=== PATIENT | female | born 1995 | race Caucasian/White ===

== ENCOUNTER 2023-01-25 14:29 | Outpatient (CLI) | payer BC ==
[2023-01-25 20:37] LABS: % IRON SATURATION 18 % (20-50); IRON 80 ug/dL (28-170); TOTAL IRON BINDING CAPACITY 444 ug/dL (250-450); TRANSFERRIN 317 mg/dL (192-382)
== END 2023-01-25 14:30 | disposition home or self-care (01) ==
LOC: LAB.S 14:29
PROVIDERS: ATTEND Family Medicine
DX: E61.1 Iron deficiency (principal)
CPT/HCPCS: 36415; 82728; 83540; 84466

== ENCOUNTER 2024-07-20 08:00 | Outpatient (CLI) | payer BC ==
[2024-07-21 00:44] LABS: BACTERIAL VAGINOSIS DNA NEGATIVE (NEGATIVE); CANDIDA GLABRATA DNA NEGATIVE (NEGATIVE); CANDIDA GROUP DNA NEGATIVE (NEGATIVE); CANDIDA KRUSEI DNA NEGATIVE (NEGATIVE); TRICHOMONAS VAGINALIS DNA NEGATIVE (NEGATIVE)
[2024-07-21 01:41] LABS: CHLAMYDIA TRACHOMATIS DNA NEGATIVE (NEGATIVE); NEISSERIA GONORRHOEAE DNA NEGATIVE (NEGATIVE)
== END 2024-07-20 23:59 | disposition home or self-care (01) ==
LOC: LAB 08:00
PROVIDERS: ATTEND Registered Nurse
DX: N94.6 Dysmenorrhea, unspecified (principal); N89.8 Other specified noninflammatory disorders of vagina; Z20.2 Contact with and (suspected) exposure to infections with a predominantly sexual mode of transmission
CPT/HCPCS: 81514; 87491; 87591; 87661

== ENCOUNTER 2024-07-21 12:50 | Outpatient (CLI) | payer BC ==
[2024-07-21 20:32] LABS: BILIRUBIN,URINE NEGATIVE (NEGATIVE); CLARITY,URINE CLEAR (CLEAR); GLUCOSE, URINE (UA) NEGATIVE (NEGATIVE); KETONES,URINE (UA) NEGATIVE (NEGATIVE); LEUKOCYTE ESTERASE, URINE NEGATIVE (NEGATIVE); NITRITE,URINE NEGATIVE (NEGATIVE); OCCULT BLOOD,URINE NEGATIVE (NEGATIVE); PH,URINE 7.5 PH (5.0-7.5); PROTEIN,URINE NEGATIVE (NEGATIVE); UROBILINOGEN,URINE 0.2 (NORMAL) E.U./dL (NORMAL)
[2024-07-21 20:36] LABS: BACTERIA,URINE Rare /HPF (None Seen); RBC,URINE 0-5 /HPF (0-5); SQUAMOUS EPITHELIAL CELL,UR RARE Squamous (<= Few); WBC,URINE 0-3 /HPF (0-5)
[2024-07-21 20:49] LABS: HCG,QUALITATIVE BLOOD NEGATIVE
[2024-07-23 03:38] LABS: HIV SCREEN 4TH GENERATION Non Reactive (Non Reactive)
== END 2024-07-21 12:51 | disposition home or self-care (01) ==
LOC: LAB.S 12:50
PROVIDERS: ATTEND Registered Nurse
DX: N94.6 Dysmenorrhea, unspecified (principal); N89.8 Other specified noninflammatory disorders of vagina; Z20.2 Contact with and (suspected) exposure to infections with a predominantly sexual mode of transmission
CPT/HCPCS: 36415; 81001; 84703; 86592; 87086; 87389